=== PATIENT | female | born 1940 | race Caucasian/White ===

== ENCOUNTER 2022-09-20 19:46 | Emergency (ER) | payer MEDICARE, OTHER ==
[~2022-09-20] VITALS: Ht 149.9 cm; Wt 59.4 kg
--- NOTE | 2022-09-20 20:00 | NUR ---
PT IN BED 6, BREATHING IS EVEN AND UNLABORED A/OX4. C/O DESATTING ON ROOM AIR POST DIALYSIS. PT STATES THAT SHE DID NOT FEEL WELL AFTER DIALYSIS AND WAS DESATING DOES NOT ENDORSE ANY COPD OR ASTHMA. PT IS A LIFE TIME SMOKER. VITALS WNL, CONNECTED TO BEDSIDE MONITOR. SIDE RAILS UP, BED LOCKED AND IN LOWEST POSTION.
--- NOTE | 2022-09-20 20:40 | NUR ---
COMMERCIAL MAKEUP ARTIST AT PT'S BEDSIDE
[2022-09-20 20:50] LABS: BASOPHILS % (AUTO) 0.5 % (0.0-2.0); HEMATOCRIT 39 % (33-45); HEMOGLOBIN 12.5 g/dL (11.5-14.8); LYMPHOCYTES # (AUTO) 0.3 K/uL (0.8-4.8); LYMPHOCYTES % (AUTO) 5.9 % (20.0-44.0); MEAN CORPUSCULAR HGB CONC 32 g/dl (31.0-36.0); MEAN CORPUSCULAR VOLUME 94 fL (82-100); MONOCYTES # (AUTO) 0.3 K/uL (0.1-1.30); MONOCYTES % (AUTO) 6.2 % (2.0-12.0); NEUTROPHILS # (AUTO) 4.3 K/uL (1.8-8.9); NEUTROPHILS % (AUTO) 85.4 % (43.0-81.0); PLATELET COUNT (AUTO) 159 K/uL (150-450); RED BLOOD CELL COUNT(AUTO) 4.12 MIL/uL (4.0-5.2); WHITE BLOOD COUNT (AUTO) 5.1 K/uL (4.3-11.0)
[2022-09-20 21:02] LABS: CALCIUM, SERUM 9.3 mg/dL (8.5-10.1); CARBON DIOXIDE 35 mmol/L (21-32); CHLORIDE 99 mmol/L (98-107); CREATININE 4.3 mg/dL (0.6-1.3); GLUCOSE 174 mg/dL (74-106); POTASSIUM 4.5 mmol/L (3.5-5.1); SODIUM SERUM 138 mmol/L (136-145); UREA NITROGEN, BLOOD 31 mg/dL (7-18)
--- NOTE | 2022-09-20 22:45 | NUR ---
BLOOD DRAWN FOR REPEAT TROPONIN
--- NOTE | 2022-09-20 23:36 | NUR ---
DISCHARGE INSTRUCTION GIVEN AND EXPLAINED TO PT BY MD AND RN. PT VOCOLIZED UNDERSTANDING AND WILL FOLLOW UP WITH HER PRIMARY CARE PROVIDER. PTS VITALS ARE STABLE AND OXYGEN HAS RECOVERED TO BASELINE AFTER ER OBSERVATION. TO COME AND ELEMENTARY ASSISTANT TEACHER PT. IV LINE D/C'ED AND DRESSED.
[2022-09-20 23:46] VITALS: BP 132/76
== END 2022-09-20 23:46 | disposition home or self-care (01) ==
LOC: ER 19:47
DX: R06.02 Shortness of breath (principal); I12.0 Hypertensive chronic kidney disease with stage 5 chronic kidney disease or end stage renal disease; N18.6 End stage renal disease; J44.9 Chronic obstructive pulmonary disease, unspecified; R07.89 Other chest pain; Z99.2 Dependence on renal dialysis
CPT/HCPCS: 36415; 71045-TC; 80048-TC; 83880; 84484-TC; 85025-TC